=== PATIENT | male | born 1940 | race Caucasian/White ===

== ENCOUNTER 2020-06-01 08:58 | Inpatient (IN) ==
[2020-06-01] MEDS ORDERED: Famotidine 20 MG/2 ML VIAL IVP ONE (09:11)
[2020-06-01] MEDS ORDERED: Acetaminophen IV 1,000 MG/100 ML INFUS..BTL IVPB ONE (09:11)
[2020-06-01] MEDS ORDERED: *HR* HYDROmorphone 2 MG TABLET PO PRN (09:11)
[2020-06-01] MEDS ORDERED: *HR* Labetalol 20 MG/4 ML SYRINGE IVP PRN (09:11)
[2020-06-01] MEDS ORDERED: *HR* OxyCODONE Immed Rel 5 MG TABLET PO PRN (09:11)
[2020-06-01] MEDS ORDERED: cefOXitin 2,000 MG in Water for inj. (sterile) 20 ML IVP ONE (09:44)
[2020-06-01] MEDS ORDERED: *HR* Propofol 200 MG/20 ML VIAL IVP ONE (10:02)
[2020-06-01] MEDS ORDERED: *HR* Rocuronium Bromide 50 MG/5 ML VIAL ONE ×2 (10:02→13:12)
[2020-06-01] MEDS ORDERED: *HR* FentaNYL (PF) 100 MCG/2 ML VIAL ONE (10:02)
[2020-06-01] MEDS ORDERED: Lidocaine -MPF 2% 2 ML VIAL ONE (10:02)
[2020-06-01] MEDS ORDERED: Dexamethasone 4 MG/ML VIAL ONE (10:02)
[2020-06-01] MEDS ORDERED: Ondansetron 4 MG/2 ML VIAL ONE (10:02)
[2020-06-01] MEDS: Ringers Solution, Lactated 1,000 ML IVC SCH ×3 (10:13→16:56)
[2020-06-01] MEDS ORDERED: EPHEDrine 50 MG/ML VIAL ONE (11:53)
[2020-06-01] MEDS ORDERED: *HR* HYDROMORPHONE 2 MG/ML VIAL ONE (12:11)
[2020-06-01] MEDS ORDERED: Furosemide 40 MG/4 ML VIAL ONE (15:53)
[2020-06-01] MEDS: *HR* HYDROmorphone (PF) 1 MG/ML SYRINGE IVP PRN ×2 (16:15→16:26)
[2020-06-01] MEDS: *HR* Promethazine 25 MG/ML VIAL IVP PRN ×2 (16:24→16:38)
[2020-06-01] MEDS ORDERED: Naloxone 0.4 MG/ML INJ IVP PRN (18:15)
[2020-06-01] MEDS: 0.9 % Sodium Chloride 1,000 ML IVC SCH (18:43)
[2020-06-01] MEDS: Ketorolac 15 MG/ML VIAL IVP SCH (23:58)
[2020-06-01] MEDS: Acetaminophen IV 1,000 MG/100 ML INFUS..BTL IVPB SCH (23:59)
[2020-06-02] MEDS: Ketorolac 15 MG/ML VIAL IVP SCH ×4 (05:17→23:19)
[2020-06-02] MEDS: Acetaminophen IV 1,000 MG/100 ML INFUS..BTL IVPB SCH ×4 (05:17→23:20)
[2020-06-02] MEDS: 0.9 % Sodium Chloride 1,000 ML IVC SCH (05:18)
[2020-06-02] MEDS: *HR* Heparin 5,000 UNIT/ML VIAL SQ SCH ×2 (05:18→17:31)
[2020-06-02 06:07] LABS: Hematocrit 36.5 % (37.5-50.1); Hemoglobin 11.8 g/dL (12.9-16.9); Immature Granulocytes % 0.3 % (0-4); Lymphocytes # 0.4 K/mcL (0.6-4.6); Lymphocytes % 3.3 %; Mean Corpuscular HGB Conc 32.3 g/dL (31.6-35.5); Mean Corpuscular Hemoglobin 28.6 pg (28.0-33.3); Mean Corpuscular Volume 88.6 fL (83.0-100.0); Mean Platelet Volume 9.5 fL (9.4-12.4); Monocytes # 1.1 K/mcL (0.0-1.3); Monocytes % 9.2 %; Neutrophils # 10.5 K/mcL (1.6-8.9); Platelet Count 190 K/mcL (140-400); Red Blood Count 4.12 M/mcL (4.19-5.50); Red Cell Distribution Width 14.5 % (11.5-14.5); Segmented Neutrophils % 87.2 %
[2020-06-02 06:26] LABS: BUN/Creatinine Ratio 23 (6-26); Blood Urea Nitrogen 24 mg/dL (8-23); Calcium 8.5 mg/dL (8.6-10.3); Carbon Dioxide 24 mEq/L (23-29); Chloride 104 mEq/L (98-107); Glucose 133 mg/dL (70-105); Osmolality,Calculated 286 (280-300); Potassium 4.2 mEq/L (3.5-5.1); Sodium 135 mEq/L (136-145); eGFR For African Americans > 60 (> 60); eGFR For Non-African Americans > 60 (> 60)
[2020-06-02] MEDS: Finasteride 5 MG TABLET PO SCH (08:43)
[2020-06-02] MEDS: Ondansetron 4 MG/2 ML VIAL IVP PRN (23:17)
[2020-06-03 00:58] LABS: Basophils % 0.2 %; Eosinophils % 0.2 %; Hemoglobin 11.5 g/dL (12.9-16.9); Immature Granulocytes % 0.4 % (0-4); Lymphocytes # 0.3 K/mcL (0.6-4.6); Lymphocytes % 2.7 %; Mean Corpuscular HGB Conc 31.9 g/dL (31.6-35.5); Mean Corpuscular Hemoglobin 28.8 pg (28.0-33.3); Mean Corpuscular Volume 90.2 fL (83.0-100.0); Mean Platelet Volume 9.8 fL (9.4-12.4); Monocytes # 0.8 K/mcL (0.0-1.3); Monocytes % 6.9 %; Platelet Count 196 K/mcL (140-400); Red Blood Count 3.99 M/mcL (4.19-5.50); Red Cell Distribution Width 14.6 % (11.5-14.5); Segmented Neutrophils % 89.6 %; White Blood Count 12.2 K/mcL (4.3-11.1)
[2020-06-03 01:20] LABS: Alanine Aminotransferase 16 Units/L (7-52); Albumin 3.5 g/dL (3.5-5.7); Albumin/Globulin Ratio 1.6 (1.1-2.2); Alkaline Phosphatase 56 Units/L (34-104); Aspartate Amino Transferase 11 Units/L (13-39); BUN/Creatinine Ratio 22 (6-26); Bilirubin,Total 0.9 mg/dL (0.3-1.0); Blood Urea Nitrogen 23 mg/dL (8-23); Calcium 8.9 mg/dL (8.6-10.3); Carbon Dioxide 25 mEq/L (23-29); Chloride 102 mEq/L (98-107); Globulin 2.2 g/dL (2.4-3.5); Glucose 153 mg/dL (70-105); Osmolality,Calculated 287 (280-300); Potassium 3.8 mEq/L (3.5-5.1); Sodium 135 mEq/L (136-145); Total Protein 5.7 g/dL (6.4-8.9); eGFR For African Americans > 60 (> 60); eGFR For Non-African Americans > 60 (> 60)
[2020-06-03 01:21] LABS: Troponin I < 0.03 ng/mL (< 0.04)
[2020-06-03] MEDS ORDERED: Pantoprazole 40 MG VIAL IVP ONE (02:46)
[2020-06-03] MEDS: Ketorolac 15 MG/ML VIAL IVP SCH ×2 (06:33→12:22)
[2020-06-03] MEDS: *HR* Heparin 5,000 UNIT/ML VIAL SQ SCH ×2 (06:33→17:48)
[2020-06-03] MEDS: Acetaminophen IV 1,000 MG/100 ML INFUS..BTL IVPB SCH ×2 (06:34→12:23)
[2020-06-03] MEDS ORDERED: Simethicone 80 MG TAB.CHEW PO PRN (08:46)
[2020-06-03] MEDS: Finasteride 5 MG TABLET PO SCH (09:11)
[2020-06-03] MEDS: Ketorolac 15 MG/ML VIAL IVP PRN (21:33)
[2020-06-04] MEDS: Ketorolac 15 MG/ML VIAL IVP PRN (03:23)
[2020-06-04] MEDS: *HR* Heparin 5,000 UNIT/ML VIAL SQ SCH ×2 (04:53→18:17)
[2020-06-04] MEDS: Ondansetron 4 MG/2 ML VIAL IVP PRN (05:48)
[2020-06-04] MEDS ORDERED: Pantoprazole 40 MG VIAL IVP SCH (09:00)
[2020-06-04] MEDS ORDERED: Morphine Sulfate Oral CONC 10 MG/0.5 ML ORAL.SYG SL PRN (09:23)
[2020-06-04] MEDS: Finasteride 5 MG TABLET PO SCH (09:36)
[2020-06-04] MEDS ORDERED: *HR* Promethazine 25 MG/ML VIAL IVP ONE (10:35)
[2020-06-04 11:15] LABS: Basophils % 0.4 %; Eosinophils # 0.2 K/mcL (0.0-0.6); Eosinophils % 1.7 %; Hematocrit 39.4 % (37.5-50.1); Hemoglobin 12.9 g/dL (12.9-16.9); Lymphocytes # 0.5 K/mcL (0.6-4.6); Lymphocytes % 5.1 %; Mean Corpuscular HGB Conc 32.7 g/dL (31.6-35.5); Mean Corpuscular Hemoglobin 29.7 pg (28.0-33.3); Mean Corpuscular Volume 90.6 fL (83.0-100.0); Mean Platelet Volume 10.1 fL (9.4-12.4); Monocytes # 0.6 K/mcL (0.0-1.3); Monocytes % 6.5 %; Neutrophils # 8.2 K/mcL (1.6-8.9); Platelet Count 208 K/mcL (140-400); Red Blood Count 4.35 M/mcL (4.19-5.50); Red Cell Distribution Width 14.6 % (11.5-14.5); Segmented Neutrophils % 85.3 %; White Blood Count 9.6 K/mcL (4.3-11.1)
[2020-06-04 11:29] LABS: Alanine Aminotransferase 14 Units/L (7-52); Albumin 3.7 g/dL (3.5-5.7); Albumin/Globulin Ratio 1.5 (1.1-2.2); Alkaline Phosphatase 60 Units/L (34-104); Aspartate Amino Transferase 13 Units/L (13-39); BUN/Creatinine Ratio 31 (6-26); Bilirubin,Direct 0.2 mg/dL (0.0-0.2); Bilirubin,Indirect 0.6 mg/dL (0.0-1.0); Bilirubin,Total 0.8 mg/dL (0.3-1.0); Blood Urea Nitrogen 27 mg/dL (8-23); Calcium 9.4 mg/dL (8.6-10.3); Carbon Dioxide 22 mEq/L (23-29); Chloride 102 mEq/L (98-107); Globulin 2.5 g/dL (2.4-3.5); Glucose 123 mg/dL (70-105); Lipase 20 Units/L (11-82); Magnesium 1.9 mg/dL (1.6-2.6); Osmolality,Calculated 288 (280-300); Phosphorous 3.4 mg/dL (2.7-4.5); Potassium 3.9 mEq/L (3.5-5.1); Sodium 136 mEq/L (136-145); Total Protein 6.2 g/dL (6.4-8.9); Troponin I < 0.03 ng/mL (< 0.04); eGFR For African Americans > 60 (> 60); eGFR For Non-African Americans > 60 (> 60)
[2020-06-04] MEDS ORDERED: Acetaminophen IV 1,000 MG/100 ML INFUS..BTL IVPB ONE (16:50)
[2020-06-04] MEDS ORDERED: *HR* LORazepam 0.5 MG TABLET PO PRN (16:52)
[2020-06-05] MEDS: Morphine Sulfate 2 MG/ML SYRINGE IVP PRN ×2 (01:03→05:52)
[2020-06-05] MEDS: Ondansetron 4 MG/2 ML VIAL IVP PRN (05:50)
[2020-06-05] MEDS: *HR* Heparin 5,000 UNIT/ML VIAL SQ SCH ×2 (05:51→17:58)
[2020-06-05 06:53] LABS: Basophils # 0.1 K/mcL (0.0-0.2); Basophils % 0.4 %; Eosinophils # 0.1 K/mcL (0.0-0.6); Eosinophils % 0.9 %; Hematocrit 39.3 % (37.5-50.1); Hemoglobin 12.6 g/dL (12.9-16.9); Immature Granulocytes % 1.6 % (0-4); Lymphocytes # 0.5 K/mcL (0.6-4.6); Mean Corpuscular HGB Conc 32.1 g/dL (31.6-35.5); Mean Corpuscular Hemoglobin 29.1 pg (28.0-33.3); Mean Corpuscular Volume 90.8 fL (83.0-100.0); Mean Platelet Volume 9.9 fL (9.4-12.4); Monocytes # 0.9 K/mcL (0.0-1.3); Monocytes % 7.5 %; Neutrophils # 9.9 K/mcL (1.6-8.9); Platelet Count 231 K/mcL (140-400); Red Blood Count 4.33 M/mcL (4.19-5.50); Red Cell Distribution Width 14.3 % (11.5-14.5); Segmented Neutrophils % 85.6 %; White Blood Count 11.5 K/mcL (4.3-11.1)
[2020-06-05 07:12] LABS: BUN/Creatinine Ratio 38 (6-26); Blood Urea Nitrogen 34 mg/dL (8-23); Calcium 9.6 mg/dL (8.6-10.3); Carbon Dioxide 23 mEq/L (23-29); Chloride 100 mEq/L (98-107); Glucose 126 mg/dL (70-105); Osmolality,Calculated 287 (280-300); Potassium 4.2 mEq/L (3.5-5.1); Sodium 134 mEq/L (136-145); eGFR For African Americans > 60 (> 60); eGFR For Non-African Americans > 60 (> 60)
[2020-06-05] MEDS: Finasteride 5 MG TABLET PO SCH (09:15)
[2020-06-05] MEDS ORDERED: 0.9 % Sodium Chloride 1,000 ML IVC ONE (12:02)
[2020-06-05] MEDS: Ondansetron 4 MG/2 ML VIAL IVP SCH ×2 (12:48→17:58)
[2020-06-05] MEDS: 0.9 % Sodium Chloride 1,000 ML IVC SCH ×2 (13:45→23:19)
[2020-06-05] MEDS: Acetaminophen IV 1,000 MG/100 ML INFUS..BTL IVPB SCH ×2 (16:28→23:18)
[2020-06-05] MEDS: Piperacillin/Tazobactam 3.375 GM in 0.9 % Sodium Chloride Mini Bag 100 ML IVPB SCH (17:59)
[2020-06-06] MEDS: Ondansetron 4 MG/2 ML VIAL IVP SCH ×4 (00:25→17:28)
[2020-06-06] MEDS: Piperacillin/Tazobactam 3.375 GM in 0.9 % Sodium Chloride Mini Bag 100 ML IVPB SCH ×3 (00:31→17:28)
[2020-06-06] MEDS ORDERED: GI Cocktail 40 ML EACH PO ONE (03:43)
[2020-06-06] MEDS ORDERED: Prochlorperazine 10 MG/2 ML VIAL IVP PRN (03:44)
[2020-06-06] MEDS: *HR* Heparin 5,000 UNIT/ML VIAL SQ SCH ×2 (05:47→17:27)
[2020-06-06 05:52] LABS: Basophils # 0.1 K/mcL (0.0-0.2); Basophils % 0.6 %; Eosinophils # 0.1 K/mcL (0.0-0.6); Eosinophils % 1.4 %; Hematocrit 38.9 % (37.5-50.1); Hemoglobin 12.5 g/dL (12.9-16.9); Immature Granulocytes % 1.7 % (0-4); Lymphocytes # 0.4 K/mcL (0.6-4.6); Mean Corpuscular HGB Conc 32.1 g/dL (31.6-35.5); Mean Corpuscular Hemoglobin 28.8 pg (28.0-33.3); Mean Corpuscular Volume 89.6 fL (83.0-100.0); Mean Platelet Volume 9.6 fL (9.4-12.4); Monocytes # 0.8 K/mcL (0.0-1.3); Monocytes % 9.3 %; Neutrophils # 7.4 K/mcL (1.6-8.9); Platelet Count 229 K/mcL (140-400); Red Blood Count 4.34 M/mcL (4.19-5.50); Red Cell Distribution Width 14.4 % (11.5-14.5); White Blood Count 8.9 K/mcL (4.3-11.1)
[2020-06-06 06:03] LABS: BUN/Creatinine Ratio 36 (6-26); Blood Urea Nitrogen 33 mg/dL (8-23); Carbon Dioxide 22 mEq/L (23-29); Chloride 103 mEq/L (98-107); Glucose 130 mg/dL (70-105); Magnesium 2.1 mg/dL (1.6-2.6); Osmolality,Calculated 287 (280-300); Potassium 4.2 mEq/L (3.5-5.1); Sodium 134 mEq/L (136-145); eGFR For African Americans > 60 (> 60); eGFR For Non-African Americans > 60 (> 60)
[2020-06-06] MEDS: Acetaminophen IV 1,000 MG/100 ML INFUS..BTL IVPB SCH ×2 (08:43→15:47)
[2020-06-06] MEDS: Finasteride 5 MG TABLET PO SCH (08:44)
[2020-06-06] MEDS ORDERED: Scopolamine Patch 1.5 MG PATCH.TD72 TD ONE (09:34)
[2020-06-06] MEDS ORDERED: *HR* FentaNYL (PF) 100 MCG/2 ML VIAL IVP ONE (09:34)
[2020-06-06] MEDS ORDERED: Ondansetron 4 MG/2 ML VIAL IVP ONE (09:35)
[2020-06-06] MEDS ORDERED: Isovue-370 500 ML BOTTLE IVP ONE (09:36)
[2020-06-06] MEDS ORDERED: Lidocaine -MPF 1% 5 ML AMPUL INFILT ONE (11:16)
[2020-06-06 11:37] LABS: Triglycerides 196 mg/dL (< 150)
[2020-06-06] MEDS ORDERED: D10% in Water 500 ML IVC PRN (11:38)
[2020-06-06] MEDS ORDERED: Dextrose Gel 15 GM/37.5 ML TUBE PO PRN ×2 (11:55)
[2020-06-06] MEDS ORDERED: D5% in Water 1,000 ML IVC PRN (11:55)
[2020-06-06] MEDS ORDERED: *HR* Dextrose 50 % in Water (Vial) 50 ML VIAL IVP PRN (11:55)
[2020-06-06] MEDS: Insulin LISPRO 300 UNITS/3 ML VIAL SQ SCH ×3 (15:16→22:21)
[2020-06-06] MEDS ORDERED: Clinimix E 5%-15% SOLUTION 2,000 ML with MVI, adult with vitamin K 10 ML IVC SCH (17:00)
[2020-06-06] MEDS: 0.9 % Sodium Chloride 1,000 ML IVC SCH (17:29)
[2020-06-07] MEDS: Insulin LISPRO 300 UNITS/3 ML VIAL SQ SCH ×5 (00:19→16:13)
[2020-06-07] MEDS: Acetaminophen IV 1,000 MG/100 ML INFUS..BTL IVPB SCH ×3 (00:21→15:49)
[2020-06-07] MEDS: Ondansetron 4 MG/2 ML VIAL IVP SCH ×4 (00:22→17:27)
[2020-06-07] MEDS: Piperacillin/Tazobactam 3.375 GM in 0.9 % Sodium Chloride Mini Bag 100 ML IVPB SCH ×2 (00:22→09:04)
[2020-06-07] MEDS: 0.9 % Sodium Chloride 1,000 ML IVC SCH ×2 (04:08→04:40)
[2020-06-07 04:44] LABS: Basophils # 0.1 K/mcL (0.0-0.2); Basophils % 1.1 %; Eosinophils # 0.3 K/mcL (0.0-0.6); Eosinophils % 4.6 %; Hemoglobin 11.4 g/dL (12.9-16.9); Immature Granulocytes % 5.5 % (0-4); Lymphocytes # 0.3 K/mcL (0.6-4.6); Lymphocytes % 4.5 %; Mean Corpuscular HGB Conc 32.6 g/dL (31.6-35.5); Mean Corpuscular Hemoglobin 29.5 pg (28.0-33.3); Mean Corpuscular Volume 90.7 fL (83.0-100.0); Mean Platelet Volume 9.7 fL (9.4-12.4); Monocytes # 0.8 K/mcL (0.0-1.3); Monocytes % 11.5 %; Neutrophils # 5.2 K/mcL (1.6-8.9); Platelet Count 195 K/mcL (140-400); Red Blood Count 3.86 M/mcL (4.19-5.50); Red Cell Distribution Width 14.5 % (11.5-14.5); Segmented Neutrophils % 72.8 %; White Blood Count 7.1 K/mcL (4.3-11.1)
[2020-06-07 05:05] LABS: BUN/Creatinine Ratio 29 (6-26); Blood Urea Nitrogen 23 mg/dL (8-23); Calcium 8.2 mg/dL (8.6-10.3); Carbon Dioxide 23 mEq/L (23-29); Chloride 104 mEq/L (98-107); Glucose 115 mg/dL (70-105); Magnesium 2.1 mg/dL (1.6-2.6); Osmolality,Calculated 283 (280-300); Phosphorous 2.1 mg/dL (2.7-4.5); Potassium 3.7 mEq/L (3.5-5.1); Sodium 134 mEq/L (136-145); eGFR For African Americans > 60 (> 60); eGFR For Non-African Americans > 60 (> 60)
[2020-06-07 05:25] LABS: Platelet Estimate Normal (Normal)
[2020-06-07] MEDS: *HR* Heparin 5,000 UNIT/ML VIAL SQ SCH ×2 (05:35→17:28)
[2020-06-07] MEDS: *HR* Promethazine 25 MG/ML VIAL IVP PRN (09:06)
[2020-06-07] MEDS: Finasteride 5 MG TABLET PO SCH (09:07)
[2020-06-07] MEDS ORDERED: Clinimix E 5%-15% SOLUTION 2,000 ML with MVI, adult with vitamin K 10 ML IVC SCH (17:00)
[2020-06-08] MEDS: Ondansetron 4 MG/2 ML VIAL IVP SCH ×4 (00:08→17:22)
[2020-06-08] MEDS: Insulin LISPRO 300 UNITS/3 ML VIAL SQ SCH ×7 (01:20→22:07)
[2020-06-08] MEDS: *HR* Heparin 5,000 UNIT/ML VIAL SQ SCH ×2 (05:41→17:22)
[2020-06-08 05:55] LABS: Eosinophils # 0.2 K/mcL (0.0-0.6); Hematocrit 34.3 % (37.5-50.1); Hemoglobin 11.2 g/dL (12.9-16.9); Mean Corpuscular HGB Conc 32.7 g/dL (31.6-35.5); Mean Corpuscular Hemoglobin 29.6 pg (28.0-33.3); Mean Corpuscular Volume 90.5 fL (83.0-100.0); Mean Platelet Volume 9.4 fL (9.4-12.4); Platelet Count 199 K/mcL (140-400); Red Blood Count 3.79 M/mcL (4.19-5.50); Red Cell Distribution Width 14.4 % (11.5-14.5); White Blood Count 8.4 K/mcL (4.3-11.1)
[2020-06-08 05:56] LABS: VBG Ionized Calcium 1.16 mmol/L (1.15-1.35)
[2020-06-08 06:15] LABS: BUN/Creatinine Ratio 26 (6-26); Blood Urea Nitrogen 19 mg/dL (8-23); Calcium 8.5 mg/dL (8.6-10.3); Carbon Dioxide 25 mEq/L (23-29); Chloride 105 mEq/L (98-107); Glucose 146 mg/dL (70-105); Magnesium 2.2 mg/dL (1.6-2.6); Osmolality,Calculated 285 (280-300); Phosphorous 2.6 mg/dL (2.7-4.5); Potassium 3.6 mEq/L (3.5-5.1); Sodium 135 mEq/L (136-145); eGFR For African Americans > 60 (> 60); eGFR For Non-African Americans > 60 (> 60)
[2020-06-08 06:29] LABS: Lymphocytes # 0.3 K/mcL (0.6-4.6); Neutrophils # 7.9 K/mcL (1.6-8.9); Platelet Estimate Normal (Normal)
[2020-06-08] MEDS: Finasteride 5 MG TABLET PO SCH (08:20)
[2020-06-08] MEDS: Acetaminophen 325 MG TABLET PO PRN (13:45)
[2020-06-08] MEDS ORDERED: Clinimix E 5%-15% SOLUTION 2,000 ML with MVI, adult with vitamin K 10 ML IVC SCH (17:00)
[2020-06-09] MEDS: Ondansetron 4 MG/2 ML VIAL IVP SCH ×4 (00:46→17:34)
[2020-06-09] MEDS: Insulin LISPRO 300 UNITS/3 ML VIAL SQ SCH ×6 (00:49→22:30)
[2020-06-09] MEDS: Acetaminophen 325 MG TABLET PO PRN ×2 (04:23→16:59)
[2020-06-09] MEDS: *HR* Heparin 5,000 UNIT/ML VIAL SQ SCH ×2 (06:14→17:33)
[2020-06-09 06:29] LABS: Hematocrit 35.7 % (37.5-50.1); Hemoglobin 11.4 g/dL (12.9-16.9); Mean Corpuscular HGB Conc 31.9 g/dL (31.6-35.5); Mean Corpuscular Hemoglobin 28.5 pg (28.0-33.3); Mean Corpuscular Volume 89.3 fL (83.0-100.0); Mean Platelet Volume 9.7 fL (9.4-12.4); Platelet Count 225 K/mcL (140-400); Red Cell Distribution Width 14.5 % (11.5-14.5); White Blood Count 9.7 K/mcL (4.3-11.1)
[2020-06-09 07:19] LABS: BUN/Creatinine Ratio 26 (6-26); Blood Urea Nitrogen 18 mg/dL (8-23); Calcium 8.8 mg/dL (8.6-10.3); Carbon Dioxide 25 mEq/L (23-29); Chloride 103 mEq/L (98-107); Glucose 113 mg/dL (70-105); Magnesium 2.3 mg/dL (1.6-2.6); Osmolality,Calculated 283 (280-300); Potassium 3.7 mEq/L (3.5-5.1); Sodium 135 mEq/L (136-145); eGFR For African Americans > 60 (> 60); eGFR For Non-African Americans > 60 (> 60)
[2020-06-09 07:52] LABS: Lymphocytes # 0.8 K/mcL (0.6-4.6); Monocytes # 0.4 K/mcL (0.0-1.3); Neutrophils # 8.2 K/mcL (1.6-8.9)
[2020-06-09 07:53] LABS: Platelet Estimate Normal (Normal)
[2020-06-09] MEDS: Finasteride 5 MG TABLET PO SCH (09:04)
[2020-06-09] MEDS ORDERED: Clinimix E 5%-15% SOLUTION 2,000 ML with MVI, adult with vitamin K 10 ML IVC SCH (17:00)
[2020-06-09] MEDS: *HR* Promethazine 25 MG/ML VIAL IVP PRN (21:16)
[2020-06-10] MEDS: Ondansetron 4 MG/2 ML VIAL IVP SCH ×4 (00:21→17:20)
[2020-06-10] MEDS: Insulin LISPRO 300 UNITS/3 ML VIAL SQ SCH ×6 (00:23→20:56)
[2020-06-10] MEDS: *HR* Heparin 5,000 UNIT/ML VIAL SQ SCH ×2 (05:21→17:20)
[2020-06-10 05:58] LABS: BUN/Creatinine Ratio 29 (6-26); Blood Urea Nitrogen 21 mg/dL (8-23); Calcium 8.9 mg/dL (8.6-10.3); Carbon Dioxide 27 mEq/L (23-29); Chloride 100 mEq/L (98-107); Glucose 114 mg/dL (70-105); Magnesium 2.3 mg/dL (1.6-2.6); Osmolality,Calculated 280 (280-300); Phosphorous 3.1 mg/dL (2.7-4.5); Potassium 3.8 mEq/L (3.5-5.1); Sodium 133 mEq/L (136-145); eGFR For African Americans > 60 (> 60); eGFR For Non-African Americans > 60 (> 60)
[2020-06-10] MEDS: Finasteride 5 MG TABLET PO SCH (08:56)
[2020-06-10] MEDS: Acetaminophen 325 MG TABLET PO PRN (11:08)
[2020-06-10] MEDS: *HR* Promethazine 25 MG/ML VIAL IVP PRN (11:08)
[2020-06-10] MEDS ORDERED: Ibuprofen 800 MG TABLET PO PRN (11:18)
[2020-06-10] MEDS ORDERED: Mag Hydrox/Al Hydrox/Simeth 30 ML UDC PO ONE (18:48)
[2020-06-11] MEDS: Ondansetron 4 MG/2 ML VIAL IVP SCH ×4 (00:02→18:09)
[2020-06-11] MEDS: Insulin LISPRO 300 UNITS/3 ML VIAL SQ SCH ×4 (00:05→11:19)
[2020-06-11] MEDS: *HR* Heparin 5,000 UNIT/ML VIAL SQ SCH ×2 (06:34→18:10)
[2020-06-11] MEDS: *HR* OxyCODONE/APAP 5/325 TABLET PO PRN ×2 (06:39→12:46)
[2020-06-11] MEDS: Metoclopramide 20 MG in 0.9 % Sodium Chloride 50 ML IVPB SCH ×2 (08:26→15:30)
[2020-06-11] MEDS: Scopolamine Patch 1.5 MG PATCH.TD72 TD SCH (08:27)
[2020-06-11] MEDS: FLUoxetine 20 MG CAPSULE PO SCH (08:27)
[2020-06-11] MEDS: Finasteride 5 MG TABLET PO SCH (08:28)
[2020-06-11] MEDS ORDERED: GI Cocktail 40 ML EACH PO STA (09:04)
[2020-06-11] MEDS: Sucralfate 1 GM TABLET PO SCH ×3 (11:48→21:30)
[2020-06-11] MEDS ORDERED: 0.9 % Sodium Chloride 1,000 ML IVC SCH (12:45)
[2020-06-11] MEDS ORDERED: 0.9 % Sodium Chloride 1,000 ML ONE (12:55)
[2020-06-11 13:00] LABS: Estimated Average Glucose 108 mg/dl
[2020-06-12] MEDS: Ondansetron 4 MG/2 ML VIAL IVP SCH ×4 (02:15→17:09)
[2020-06-12] MEDS: *HR* OxyCODONE/APAP 5/325 TABLET PO PRN ×2 (03:27→11:12)
[2020-06-12] MEDS: *HR* Heparin 5,000 UNIT/ML VIAL SQ SCH ×2 (05:42→17:08)
[2020-06-12 06:03] LABS: Basophils # 0.1 K/mcL (0.0-0.2); Basophils % 0.5 %; Eosinophils # 0.1 K/mcL (0.0-0.6); Eosinophils % 1.2 %; Hematocrit 38.1 % (37.5-50.1); Hemoglobin 12.5 g/dL (12.9-16.9); Immature Granulocytes % 1.8 % (0-4); Lymphocytes # 0.5 K/mcL (0.6-4.6); Lymphocytes % 3.9 %; Mean Corpuscular HGB Conc 32.8 g/dL (31.6-35.5); Mean Corpuscular Hemoglobin 29.8 pg (28.0-33.3); Mean Corpuscular Volume 90.7 fL (83.0-100.0); Mean Platelet Volume 9.6 fL (9.4-12.4); Monocytes % 8.1 %; Neutrophils # 10.3 K/mcL (1.6-8.9); Platelet Count 286 K/mcL (140-400); Red Cell Distribution Width 14.5 % (11.5-14.5); Segmented Neutrophils % 84.5 %; White Blood Count 12.1 K/mcL (4.3-11.1)
[2020-06-12 06:22] LABS: BUN/Creatinine Ratio 40 (6-26); Blood Urea Nitrogen 36 mg/dL (8-23); Carbon Dioxide 26 mEq/L (23-29); Chloride 98 mEq/L (98-107); Glucose 121 mg/dL (70-105); Osmolality,Calculated 284 (280-300); Potassium 4.1 mEq/L (3.5-5.1); Sodium 132 mEq/L (136-145); eGFR For African Americans > 60 (> 60); eGFR For Non-African Americans > 60 (> 60)
[2020-06-12] MEDS: Metoclopramide 20 MG in 0.9 % Sodium Chloride 50 ML IVPB SCH ×2 (07:34)
[2020-06-12] MEDS: Sucralfate 1 GM TABLET PO SCH ×4 (07:35→20:58)
[2020-06-12] MEDS: Finasteride 5 MG TABLET PO SCH (08:25)
[2020-06-12] MEDS: FLUoxetine 20 MG CAPSULE PO SCH (08:25)
[2020-06-12] MEDS ORDERED: Fluconazole 200 MG/100 ML 200 MG/100 ML BAG IVPB STA (18:23)
[2020-06-13] MEDS: Ondansetron 4 MG/2 ML VIAL IVP SCH ×4 (00:37→17:41)
[2020-06-13] MEDS: *HR* Heparin 5,000 UNIT/ML VIAL SQ SCH ×2 (02:47→17:40)
[2020-06-13] MEDS: Sucralfate 1 GM TABLET PO SCH (07:50)
[2020-06-13] MEDS: FLUoxetine 20 MG CAPSULE PO SCH (07:50)
[2020-06-13] MEDS: Finasteride 5 MG TABLET PO SCH (07:51)
[2020-06-13] MEDS ORDERED: Lidocaine -MPF 2% 2 ML VIAL ONE (08:05)
[2020-06-13 09:11] LABS: Basophils # 0.1 K/mcL (0.0-0.2); Basophils % 0.6 %; Eosinophils # 0.1 K/mcL (0.0-0.6); Eosinophils % 1.3 %; Hematocrit 38.3 % (37.5-50.1); Hemoglobin 12.5 g/dL (12.9-16.9); Immature Granulocytes % 1.9 % (0-4); Lymphocytes # 0.4 K/mcL (0.6-4.6); Lymphocytes % 3.4 %; Mean Corpuscular HGB Conc 32.6 g/dL (31.6-35.5); Mean Corpuscular Hemoglobin 28.9 pg (28.0-33.3); Mean Corpuscular Volume 88.5 fL (83.0-100.0); Mean Platelet Volume 9.7 fL (9.4-12.4); Monocytes # 0.8 K/mcL (0.0-1.3); Monocytes % 6.9 %; Neutrophils # 9.3 K/mcL (1.6-8.9); Platelet Count 311 K/mcL (140-400); Red Blood Count 4.33 M/mcL (4.19-5.50); Red Cell Distribution Width 14.4 % (11.5-14.5); Segmented Neutrophils % 85.9 %; White Blood Count 10.9 K/mcL (4.3-11.1)
[2020-06-13 09:16] LABS: Prothrombin Time 11.7 Seconds (9.4-12.1)
[2020-06-13 09:31] LABS: BUN/Creatinine Ratio 37 (6-26); Blood Urea Nitrogen 34 mg/dL (8-23); Calcium 9.3 mg/dL (8.6-10.3); Carbon Dioxide 25 mEq/L (23-29); Chloride 100 mEq/L (98-107); Glucose 111 mg/dL (70-105); Magnesium 2.5 mg/dL (1.6-2.6); Osmolality,Calculated 286 (280-300); Phosphorous 3.3 mg/dL (2.7-4.5); Sodium 134 mEq/L (136-145); eGFR For African Americans > 60 (> 60); eGFR For Non-African Americans > 60 (> 60)
[2020-06-13] MEDS: Amoxicillin 500 MG CAPSULE PO SCH ×2 (10:59→21:43)
[2020-06-13] MEDS: levoFLOXacin 750 MG TABLET PO SCH (11:02)
[2020-06-13] MEDS: Nystatin SUSP 5 ML UD.LIQ PO SCH ×3 (13:08→21:45)
[2020-06-13] MEDS: *HR* OxyCODONE/APAP 5/325 TABLET PO PRN (22:07)
[2020-06-14] MEDS: Ondansetron 4 MG/2 ML VIAL IVP SCH ×4 (00:02→17:14)
[2020-06-14] MEDS: *HR* Heparin 5,000 UNIT/ML VIAL SQ SCH ×2 (06:12→17:15)
[2020-06-14] MEDS: Scopolamine Patch 1.5 MG PATCH.TD72 TD SCH (06:13)
[2020-06-14 07:12] LABS: Basophils # 0.1 K/mcL (0.0-0.2); Basophils % 0.9 %; Eosinophils # 0.2 K/mcL (0.0-0.6); Eosinophils % 2.2 %; Hematocrit 36.5 % (37.5-50.1); Hemoglobin 11.8 g/dL (12.9-16.9); Immature Granulocytes % 2.9 % (0-4); Lymphocytes # 0.4 K/mcL (0.6-4.6); Lymphocytes % 4.9 %; Mean Corpuscular HGB Conc 32.3 g/dL (31.6-35.5); Mean Corpuscular Hemoglobin 28.7 pg (28.0-33.3); Mean Corpuscular Volume 88.8 fL (83.0-100.0); Mean Platelet Volume 9.4 fL (9.4-12.4); Monocytes # 0.8 K/mcL (0.0-1.3); Monocytes % 8.8 %; Neutrophils # 7.2 K/mcL (1.6-8.9); Nucleated Red Blood Cells 0.3 /100 WBC (0); Platelet Count 292 K/mcL (140-400); Red Blood Count 4.11 M/mcL (4.19-5.50); Red Cell Distribution Width 14.4 % (11.5-14.5); Segmented Neutrophils % 80.3 %; White Blood Count 8.9 K/mcL (4.3-11.1)
[2020-06-14 07:31] LABS: BUN/Creatinine Ratio 29 (6-26); Blood Urea Nitrogen 26 mg/dL (8-23); Carbon Dioxide 23 mEq/L (23-29); Chloride 100 mEq/L (98-107); Glucose 107 mg/dL (70-105); Magnesium 2.1 mg/dL (1.6-2.6); Osmolality,Calculated 279 (280-300); Phosphorous 3.3 mg/dL (2.7-4.5); Potassium 3.5 mEq/L (3.5-5.1); Sodium 132 mEq/L (136-145); eGFR For African Americans > 60 (> 60); eGFR For Non-African Americans > 60 (> 60)
[2020-06-14] MEDS: Nystatin SUSP 5 ML UD.LIQ PO SCH ×3 (08:09→17:15)
[2020-06-14] MEDS: levoFLOXacin 750 MG TABLET PO SCH (08:10)
[2020-06-14] MEDS: Amoxicillin 500 MG CAPSULE PO SCH (08:10)
[2020-06-14] MEDS: Finasteride 5 MG TABLET PO SCH (08:10)
[2020-06-14] MEDS: FLUoxetine 20 MG CAPSULE PO SCH (08:10)
[2020-06-14 10:18] VITALS: BP 103/59
== END 2020-06-14 18:40 | disposition other institution (70) | DRG 329 ==
LOC: SAMDAY 08:58 → 3ANU 17:45 → SUATTDRO 17:45
PROVIDERS: ADMIT Surgery; ATTEND Surgery
PROC: ENDOEBX (2020-06-13 17:10)

== ENCOUNTER 2020-08-10 11:54 | Inpatient (IN) ==
[2020-08-10] MEDS ORDERED: Ringers Solution, Lactated 1,000 ML IVC SCH (12:30)
[2020-08-10] MEDS ORDERED: *HR* Propofol 200 MG/20 ML VIAL IVP ONE (13:14)
[2020-08-10] MEDS ORDERED: *HR* Rocuronium Bromide 50 MG/5 ML VIAL ONE (13:14)
[2020-08-10] MEDS ORDERED: Lidocaine -MPF 2% 2 ML VIAL ONE (13:14)
[2020-08-10] MEDS ORDERED: Lidocaine -MPF 4% 5 ML AMPUL ONE (13:14)
[2020-08-10] MEDS ORDERED: *HR* FentaNYL (PF) 100 MCG/2 ML VIAL ONE ×2 (13:14→15:10)
[2020-08-10] MEDS ORDERED: Ondansetron 4 MG/2 ML VIAL ONE (13:14)
[2020-08-10] MEDS ORDERED: Ondansetron 4 MG/2 ML VIAL IVP PRN (13:51)
[2020-08-10] MEDS ORDERED: *HR* OxyCODONE Immed Rel 5 MG TABLET PO PRN (13:51)
[2020-08-10] MEDS ORDERED: Famotidine 20 MG/2 ML VIAL IVP ONE (13:51)
[2020-08-10] MEDS ORDERED: Acetaminophen IV 1,000 MG/100 ML INFUS..BTL IVPB ONE (13:51)
[2020-08-10] MEDS ORDERED: Promethazine 6.25 MG in 0.9 % Sodium Chloride 50 ML IVPB PRN (13:51)
[2020-08-10] MEDS ORDERED: cefOXitin 2,000 MG in Water for inj. (sterile) 20 ML IVP ONE (15:04)
[2020-08-10] MEDS ORDERED: *HR* PHENYLEPHRINE 1,000 MCG/10 ML SYRINGE IVP ONE (15:46)
[2020-08-10] MEDS: *HR* HYDROmorphone PF 0.5 MG/0.5 ML SYRINGE IVP PRN ×2 (17:20→17:31)
[2020-08-10] MEDS: 0.9 % Sodium Chloride w KCl 20 MEQ/1,000 ML MLS IVC SCH (20:00)
[2020-08-10] MEDS: Ketorolac 15 MG/ML VIAL IVP PRN (20:02)
[2020-08-11] MEDS: Ketorolac 15 MG/ML VIAL IVP PRN ×2 (08:52→22:46)
[2020-08-11] MEDS: 0.9 % Sodium Chloride w KCl 20 MEQ/1,000 ML MLS IVC SCH (15:10)
[2020-08-12] MEDS: 0.9 % Sodium Chloride w KCl 20 MEQ/1,000 ML MLS IVC SCH ×2 (04:47→20:53)
[2020-08-12] MEDS: Ketorolac 15 MG/ML VIAL IVP PRN (06:40)
[2020-08-12 07:51] LABS: Basophils % 0.4 %; Eosinophils # 0.4 K/mcL (0.0-0.6); Eosinophils % 4.1 %; Hemoglobin 12.7 g/dL (12.9-16.9); Immature Granulocytes % 0.8 % (0-4); Lymphocytes # 0.3 K/mcL (0.6-4.6); Lymphocytes % 3.4 %; Mean Corpuscular HGB Conc 32.6 g/dL (31.6-35.5); Mean Corpuscular Hemoglobin 28.9 pg (28.0-33.3); Mean Corpuscular Volume 88.8 fL (83.0-100.0); Mean Platelet Volume 9.5 fL (9.4-12.4); Monocytes # 0.8 K/mcL (0.0-1.3); Monocytes % 8.2 %; Neutrophils # 7.7 K/mcL (1.6-8.9); Platelet Count 180 K/mcL (140-400); Red Blood Count 4.39 M/mcL (4.19-5.50); Red Cell Distribution Width 15.2 % (11.5-14.5); Segmented Neutrophils % 83.1 %; White Blood Count 9.3 K/mcL (4.3-11.1)
[2020-08-12 08:11] LABS: BUN/Creatinine Ratio 29 (6-26); Blood Urea Nitrogen 27 mg/dL (8-23); Calcium 8.7 mg/dL (8.6-10.3); Carbon Dioxide 20 mEq/L (23-29); Chloride 106 mEq/L (98-107); Glucose 132 mg/dL (70-105); Magnesium 1.8 mg/dL (1.6-2.6); Osmolality,Calculated 285 (280-300); Phosphorous 1.9 mg/dL (2.7-4.5); Potassium 3.9 mEq/L (3.5-5.1); Sodium 134 mEq/L (136-145); eGFR For African Americans > 60 (> 60); eGFR For Non-African Americans > 60 (> 60)
[2020-08-12] MEDS ORDERED: Scopolamine Patch 1.5 MG PATCH.TD72 TD ONE (08:53)
[2020-08-12] MEDS ORDERED: Simethicone 80 MG TAB.CHEW PO PRN (08:53)
[2020-08-12] MEDS ORDERED: Ondansetron ODT 4 MG TAB.RAPDIS SL PRN (08:55)
[2020-08-12] MEDS ORDERED: Mirtazapine 15 MG TABLET PO SCH ×2 (09:00→21:00)
[2020-08-12] MEDS: Acetaminophen IV 1,000 MG/100 ML INFUS..BTL IVPB SCH ×4 (09:55→23:30)
[2020-08-12] MEDS: Metoclopramide 10 MG/2 ML VIAL IVP SCH ×4 (10:07→23:30)
[2020-08-12] MEDS: Finasteride 5 MG TABLET PO SCH (10:07)
[2020-08-12] MEDS: *HR* Heparin 5,000 UNIT/ML VIAL SQ SCH (17:07)
[2020-08-13] MEDS: Acetaminophen IV 1,000 MG/100 ML INFUS..BTL IVPB SCH ×2 (00:04→04:55)
[2020-08-13] MEDS: 0.9 % Sodium Chloride w KCl 20 MEQ/1,000 ML MLS IVC SCH (04:54)
[2020-08-13] MEDS: *HR* Heparin 5,000 UNIT/ML VIAL SQ SCH (04:54)
[2020-08-13] MEDS: Metoclopramide 10 MG/2 ML VIAL IVP SCH (05:03)
[2020-08-13] MEDS: Finasteride 5 MG TABLET PO SCH (08:25)
[2020-08-13 11:12] VITALS: BP 114/74
== END 2020-08-13 13:30 | disposition home or self-care (01) | DRG 330 ==
LOC: SAMDAY 11:54 → 3BNU 11:55
PROVIDERS: ADMIT Surgery; ATTEND Surgery

== ENCOUNTER 2021-07-27 16:20 | Observation (INO) ==
[2021-07-27 17:41] LABS: Basophils % 0.4 %; Eosinophils % 0.4 %; Hematocrit 43.1 % (37.5-50.1); Hemoglobin 14.6 g/dL (12.9-16.9); Immature Granulocytes % 1.2 % (0-4); Lymphocytes # 0.6 K/mcL (0.6-4.6); Lymphocytes % 7.7 %; Mean Corpuscular HGB Conc 33.9 g/dL (31.6-35.5); Mean Corpuscular Volume 82.7 fL (83.0-100.0); Mean Platelet Volume 10.3 fL (9.4-12.4); Monocytes # 0.6 K/mcL (0.0-1.3); Platelet Count 201 K/mcL (140-400); Red Blood Count 5.21 M/mcL (4.19-5.50); Red Cell Distribution Width 14.5 % (11.5-14.5); Segmented Neutrophils % 82.3 %; White Blood Count 7.3 K/mcL (4.3-11.1)
[2021-07-27 18:02] LABS: Alanine Aminotransferase 43 Units/L (7-52); Albumin 4.1 g/dL (3.5-5.7); Albumin/Globulin Ratio 1.4 (1.1-2.2); Alkaline Phosphatase 106 Units/L (34-104); Aspartate Amino Transferase 31 Units/L (13-39); BUN/Creatinine Ratio 22 (6-26); Bilirubin,Total 1.5 mg/dL (0.3-1.0); Blood Urea Nitrogen 25 mg/dL (8-23); Calcium 9.5 mg/dL (8.6-10.3); Carbon Dioxide 25 mEq/L (23-29); Chloride 99 mEq/L (98-107); Globulin 2.9 g/dL (2.4-3.5); Glucose 107 mg/dL (70-105); Osmolality,Calculated 287 (280-300); Potassium 3.7 mEq/L (3.5-5.1); Sodium 136 mEq/L (136-145); Troponin I < 0.03 ng/mL (< 0.04); eGFR For African Americans > 60 (> 60); eGFR For Non-African Americans > 60 (> 60)
[2021-07-27] MEDS ORDERED: 0.9 % Sodium Chloride 1,000 ML IV ONE (18:07)
[2021-07-27] MEDS ORDERED: Isovue-370 500 ML BOTTLE IVP ONE (18:30)
[2021-07-27 20:31] LABS: Bacteria,Urine Few per hpf (None-Few); Bilirubin,Urine Small (Negative); Blood,Urine Negative (Negative); Clarity,Urine Clear (Clear); Color,Urine Yellow (Yellow); Glucose,Urine (UA) Normal (Normal); Ketones,Urine 20 mg/dL (Negative); Leukocyte Esterase,Urine Negative (Negative); Mucus,Urine Moderate per lpf (None-Few); Nitrite,Urine Negative (Negative); Protein,Urine 100 mg/dL (Neg-Trace); RBC,Urine 0-3 per hpf (0-3); Specific Gravity,Urine > 1.030 (1.010-1.025); Squamous Epithelial Cell,Urine Few per hpf (None-Few)
[2021-07-27] MEDS ORDERED: Naloxone 0.4 MG/ML INJ IVP PRN (21:11)
[2021-07-27] MEDS ORDERED: Melatonin 3 MG TABLET PO PRN (21:11)
[2021-07-27] MEDS ORDERED: Perflutren Lipid Microsphere 1.3 ML in 0.9 % Sodium Chloride 8.7 ML IVP PRN (21:13)
[2021-07-27] MEDS ORDERED: Ipratropium 1 PUFF INHALER IH PRN (22:49)
[2021-07-28] MEDS ORDERED: 0.9 % Sodium Chloride 1,000 ML IVC SCH (00:30)
[2021-07-28] MEDS: *HR* Heparin 5,000 UNIT/ML VIAL SQ SCH ×2 (05:09→17:46)
[2021-07-28 06:35] LABS: BUN/Creatinine Ratio 26 (6-26); Blood Urea Nitrogen 25 mg/dL (8-23); Calcium 8.8 mg/dL (8.6-10.3); Carbon Dioxide 23 mEq/L (23-29); Chloride 103 mEq/L (98-107); Glucose 113 mg/dL (70-105); Magnesium 2.1 mg/dL (1.6-2.6); Osmolality,Calculated 289 (280-300); Phosphorous 3.2 mg/dL (2.7-4.5); Potassium 3.4 mEq/L (3.5-5.1); Sodium 137 mEq/L (136-145); eGFR For African Americans > 60 (> 60); eGFR For Non-African Americans > 60 (> 60)
[2021-07-28] MEDS: Finasteride 5 MG TABLET PO SCH (08:38)
[2021-07-28] MEDS ORDERED: Acetaminophen 325 MG TABLET PO PRN (09:23)
[2021-07-28 10:37] LABS: Hematocrit 40.6 % (37.5-50.1); Hemoglobin 13.7 g/dL (12.9-16.9); Mean Corpuscular HGB Conc 33.7 g/dL (31.6-35.5); Mean Corpuscular Hemoglobin 28.2 pg (28.0-33.3); Mean Corpuscular Volume 83.5 fL (83.0-100.0); Mean Platelet Volume 10.7 fL (9.4-12.4); Platelet Count 194 K/mcL (140-400); Red Blood Count 4.86 M/mcL (4.19-5.50); Red Cell Distribution Width 14.3 % (11.5-14.5); White Blood Count 5.8 K/mcL (4.3-11.1)
[2021-07-28 20:04] LABS: Adenovirus F 40/41 PCR Not detected (Not detect); Astrovirus PCR Not detected (Not detect); C.difficile Toxin A/B Gene PCR Not detected (Not detect); Campylobacter by PCR Not detected (Not detect); Cryptosporidium by PCR Not detected (Not detect); Cyclospora cayetanensis PCR Not detected (Not detect); E. coli O157 by PCR Not detected (Not detect); Entamoeba histolytica PCR Not detected (Not detect); Enteroaggregative E.coli(EAEC) Not detected (Not detect); Enteropathogenic E.coli(EPEC) Not detected (Not detect); Enterotoxigenic E.coli (ETEC) Not detected (Not detect); Giardia lamblia PCR Not detected (Not detect); Norovirus GI/GII PCR Not detected (Not detect); Plesiomonas shigelloides PCR Not detected (Not detect); Rotavirus A PCR Not detected (Not detect); Salmonella PCR Not detected (Not detect); Sapovirus PCR Not detected (Not detect); Shig/EnteroinvasiveE coli EIEC Not detected (Not detect); Shigalike tox-prod E coli STEC Not detected (Not detect); Vibrio PCR Not detected (Not detect); Vibrio cholerae PCR Not detected (Not detect); Yersinia enterocolitica PCR Not detected (Not detect)
[2021-07-29] MEDS: *HR* Heparin 5,000 UNIT/ML VIAL SQ SCH (06:39)
[2021-07-29] MEDS ORDERED: 0.9 % Sodium Chloride 1,000 ML IVC SCH (07:00)
[2021-07-29 10:25] VITALS: TEMP 97.8
[2021-07-29] MEDS: Finasteride 5 MG TABLET PO SCH (10:36)
[2021-07-29 16:44] VITALS: BP 123/73; PULSE 63; O2SAT 97
== END 2021-07-29 17:47 | disposition home or self-care (01) ==
LOC: EMEROOARM 16:20 → 3ANU 16:20 → SUATTDRO 21:23 → 3ANU 22:15
PROVIDERS: ADMIT Internal Medicine; ATTEND Student in an Organized Health Care Education/Training Program

== ENCOUNTER 2021-09-04 13:47 | Inpatient (IN) ==
[2021-09-04] MEDS ORDERED: Lidocaine -MPF 2% 2 ML VIAL ONE (14:20)
[2021-09-04] MEDS ORDERED: cefOXitin 2,000 MG in Water for inj. (sterile) 20 ML IVP ONE (14:21)
[2021-09-04] MEDS ORDERED: Ringers Solution, Lactated 1,000 ML IVC SCH (14:30)
[2021-09-04] MEDS ORDERED: *HR* Rocuronium Bromide 50 MG/5 ML VIAL ONE ×2 (16:11→18:09)
[2021-09-04] MEDS ORDERED: *HR* FentaNYL (PF) 100 MCG/2 ML VIAL ONE ×2 (16:11→18:23)
[2021-09-04] MEDS ORDERED: Ondansetron 4 MG/2 ML VIAL ONE (16:11)
[2021-09-04] MEDS ORDERED: Lidocaine -MPF 2% 5 ML VIAL ONE (16:11)
[2021-09-04] MEDS ORDERED: *HR* Propofol 200 MG/20 ML VIAL IVP ONE (16:12)
[2021-09-04 20:05] LABS: INR 1.2
[2021-09-04 20:12] LABS: Hematocrit 37.2 % (37.5-50.1); Hemoglobin 12.5 g/dL (12.9-16.9); Mean Corpuscular HGB Conc 33.6 g/dL (31.6-35.5); Mean Corpuscular Volume 86.3 fL (83.0-100.0); Mean Platelet Volume 9.8 fL (9.4-12.4); Platelet Count 212 K/mcL (140-400); Red Blood Count 4.31 M/mcL (4.19-5.50); Red Cell Distribution Width 15.1 % (11.5-14.5); White Blood Count 18.6 K/mcL (4.3-11.1)
[2021-09-04] MEDS ORDERED: *HR* HYDROMORPHONE 2 MG/ML VIAL ONE (20:22)
[2021-09-04] MEDS: *HR* FentaNYL (PF) 100 MCG/2 ML VIAL IVP PRN ×4 (20:58→21:26)
[2021-09-04] MEDS ORDERED: *HR* Metoprolol 5 MG/5 ML VIAL IVP PRN (22:09)
[2021-09-04] MEDS ORDERED: Naloxone 0.4 MG/ML INJ IVP PRN (22:09)
[2021-09-04 22:41] LABS: Hematocrit 40.9 % (37.5-50.1); Hemoglobin 13.3 g/dL (12.9-16.9)
[2021-09-05] MEDS: Acetaminophen IV 1,000 MG/100 ML BAG IVPB SCH ×5 (00:26→23:08)
[2021-09-05] MEDS: Pantoprazole 40 MG VIAL IVP SCH ×2 (00:26→08:49)
[2021-09-05] MEDS: 0.9 % Sodium Chloride 1,000 ML IVC SCH ×2 (00:26→19:58)
[2021-09-05] MEDS: Desitin (Zinc Oxide) 56 GM TUBE TP SCH ×3 (03:04→15:05)
[2021-09-05 05:51] LABS: Basophils % 0.1 %; Hematocrit 41.1 % (37.5-50.1); Hemoglobin 13.1 g/dL (12.9-16.9); Immature Granulocytes % 0.4 % (0-4); Lymphocytes # 0.8 K/mcL (0.6-4.6); Lymphocytes % 4.7 %; Mean Corpuscular HGB Conc 31.9 g/dL (31.6-35.5); Mean Corpuscular Hemoglobin 27.6 pg (28.0-33.3); Mean Corpuscular Volume 86.7 fL (83.0-100.0); Monocytes # 1.3 K/mcL (0.0-1.3); Monocytes % 7.4 %; Neutrophils # 15.2 K/mcL (1.6-8.9); Platelet Count 294 K/mcL (140-400); Red Blood Count 4.74 M/mcL (4.19-5.50); Red Cell Distribution Width 15.2 % (11.5-14.5); Segmented Neutrophils % 87.4 %; White Blood Count 17.4 K/mcL (4.3-11.1)
[2021-09-05 06:05] LABS: BUN/Creatinine Ratio 15 (6-26); Blood Urea Nitrogen 20 mg/dL (8-23); Calcium 8.8 mg/dL (8.6-10.3); Carbon Dioxide 17 mEq/L (23-29); Chloride 101 mEq/L (98-107); Glucose 185 mg/dL (70-105); Magnesium 1.7 mg/dL (1.6-2.6); Osmolality,Calculated 279 (280-300); Phosphorous 4.1 mg/dL (2.7-4.5); Sodium 131 mEq/L (136-145); eGFR For African Americans > 60 (> 60); eGFR For Non-African Americans 51 (> 60)
[2021-09-05] MEDS: Finasteride 5 MG TABLET PO SCH (08:49)
[2021-09-05] MEDS ORDERED: *HR* FentaNYL (PF) 100 MCG/2 ML VIAL IVP PRN (12:19)
[2021-09-06] MEDS: Desitin (Zinc Oxide) 56 GM TUBE TP SCH ×4 (01:07→21:30)
[2021-09-06] MEDS: Acetaminophen IV 1,000 MG/100 ML BAG IVPB SCH ×4 (05:04→23:27)
[2021-09-06 06:12] LABS: Basophils % 0.3 %; Eosinophils # 0.2 K/mcL (0.0-0.6); Eosinophils % 2.1 %; Hematocrit 31.2 % (37.5-50.1); Immature Granulocytes % 0.4 % (0-4); Lymphocytes # 0.7 K/mcL (0.6-4.6); Lymphocytes % 7.3 %; Mean Corpuscular HGB Conc 33.3 g/dL (31.6-35.5); Mean Corpuscular Volume 86.9 fL (83.0-100.0); Mean Platelet Volume 9.8 fL (9.4-12.4); Monocytes # 0.8 K/mcL (0.0-1.3); Monocytes % 8.4 %; Neutrophils # 7.9 K/mcL (1.6-8.9); Platelet Count 172 K/mcL (140-400); Red Blood Count 3.59 M/mcL (4.19-5.50); Red Cell Distribution Width 15.5 % (11.5-14.5); Segmented Neutrophils % 81.5 %; White Blood Count 9.7 K/mcL (4.3-11.1)
[2021-09-06 06:13] LABS: Hemoglobin 10.4 g/dL (12.9-16.9)
[2021-09-06 06:32] LABS: BUN/Creatinine Ratio 15 (6-26); Blood Urea Nitrogen 17 mg/dL (8-23); Calcium 8.1 mg/dL (8.6-10.3); Carbon Dioxide 23 mEq/L (23-29); Chloride 104 mEq/L (98-107); Glucose 124 mg/dL (70-105); Magnesium 1.8 mg/dL (1.6-2.6); Osmolality,Calculated 281 (280-300); Phosphorous 2.2 mg/dL (2.7-4.5); Sodium 134 mEq/L (136-145); eGFR For African Americans > 60 (> 60); eGFR For Non-African Americans > 60 (> 60)
[2021-09-06] MEDS: Pantoprazole 40 MG VIAL IVP SCH (08:09)
[2021-09-06] MEDS: Finasteride 5 MG TABLET PO SCH (08:09)
[2021-09-06] MEDS: Metoclopramide 10 MG/2 ML VIAL IVP SCH ×3 (11:12→23:27)
[2021-09-06] MEDS ORDERED: Simethicone 80 MG TAB.CHEW PO PRN (13:03)
[2021-09-06] MEDS ORDERED: D5% in 0.45% NACL w KCl 20 MEQ/1,000 ML MLS IVC SCH (17:30)
[2021-09-07] MEDS: Acetaminophen IV 1,000 MG/100 ML BAG IVPB SCH ×2 (05:11→11:10)
[2021-09-07] MEDS: Metoclopramide 10 MG/2 ML VIAL IVP SCH ×4 (05:12→23:08)
[2021-09-07 05:17] LABS: Basophils % 0.5 %; Eosinophils # 0.3 K/mcL (0.0-0.6); Hematocrit 29.3 % (37.5-50.1); Hemoglobin 9.4 g/dL (12.9-16.9); Immature Granulocytes % 1.2 % (0-4); Lymphocytes # 0.7 K/mcL (0.6-4.6); Lymphocytes % 8.2 %; Mean Corpuscular HGB Conc 32.1 g/dL (31.6-35.5); Mean Corpuscular Volume 90.4 fL (83.0-100.0); Mean Platelet Volume 10.1 fL (9.4-12.4); Monocytes # 0.6 K/mcL (0.0-1.3); Neutrophils # 6.6 K/mcL (1.6-8.9); Platelet Count 161 K/mcL (140-400); Red Blood Count 3.24 M/mcL (4.19-5.50); Red Cell Distribution Width 15.7 % (11.5-14.5); Segmented Neutrophils % 80.1 %; White Blood Count 8.3 K/mcL (4.3-11.1)
[2021-09-07 05:33] LABS: BUN/Creatinine Ratio 12 (6-26); Blood Urea Nitrogen 12 mg/dL (8-23); Carbon Dioxide 24 mEq/L (23-29); Chloride 104 mEq/L (98-107); Glucose 123 mg/dL (70-105); Magnesium 1.8 mg/dL (1.6-2.6); Osmolality,Calculated 279 (280-300); Potassium 3.6 mEq/L (3.5-5.1); Sodium 134 mEq/L (136-145); eGFR For African Americans > 60 (> 60); eGFR For Non-African Americans > 60 (> 60)
[2021-09-07] MEDS: Pantoprazole 40 MG VIAL IVP SCH (08:18)
[2021-09-07] MEDS: Finasteride 5 MG TABLET PO SCH (08:19)
[2021-09-07] MEDS: Desitin (Zinc Oxide) 56 GM TUBE TP PRN ×2 (08:21→14:25)
[2021-09-07] MEDS: Desitin (Zinc Oxide) 56 GM TUBE TP SCH ×3 (08:22→20:02)
[2021-09-07] MEDS ORDERED: *HR* OxyCODONE/APAP 5/325 TABLET PO PRN (13:05)
[2021-09-07] MEDS: *HR* OxyCODONE/APAP 7.5/325 TABLET PO PRN ×2 (17:24→21:52)
[2021-09-08 05:13] LABS: Basophils % 0.6 %; Eosinophils # 0.3 K/mcL (0.0-0.6); Eosinophils % 4.2 %; Hematocrit 28.7 % (37.5-50.1); Hemoglobin 9.1 g/dL (12.9-16.9); Immature Granulocytes % 2.2 % (0-4); Lymphocytes # 0.7 K/mcL (0.6-4.6); Mean Corpuscular HGB Conc 31.7 g/dL (31.6-35.5); Mean Corpuscular Hemoglobin 28.4 pg (28.0-33.3); Mean Corpuscular Volume 89.7 fL (83.0-100.0); Monocytes # 0.5 K/mcL (0.0-1.3); Monocytes % 6.5 %; Neutrophils # 5.6 K/mcL (1.6-8.9); Platelet Count 172 K/mcL (140-400); Red Cell Distribution Width 15.7 % (11.5-14.5); Segmented Neutrophils % 77.5 %; White Blood Count 7.2 K/mcL (4.3-11.1)
[2021-09-08] MEDS: Metoclopramide 10 MG/2 ML VIAL IVP SCH (05:44)
[2021-09-08] MEDS: polyethylene glycoL 3350 17 GM POWD.PACK PO SCH (08:44)
[2021-09-08] MEDS: Finasteride 5 MG TABLET PO SCH (08:44)
[2021-09-08] MEDS: Desitin (Zinc Oxide) 56 GM TUBE TP SCH ×3 (11:46→20:46)
[2021-09-08] MEDS: *HR* OxyCODONE/APAP 7.5/325 TABLET PO PRN (20:47)
[2021-09-09] MEDS: *HR* OxyCODONE/APAP 7.5/325 TABLET PO PRN ×2 (01:29→14:17)
[2021-09-09 05:33] LABS: Basophils # 0.1 K/mcL (0.0-0.2); Basophils % 0.9 %; Eosinophils # 0.4 K/mcL (0.0-0.6); Eosinophils % 5.2 %; Hematocrit 28.8 % (37.5-50.1); Hemoglobin 9.3 g/dL (12.9-16.9); Immature Granulocytes % 3.3 % (0-4); Lymphocytes # 0.6 K/mcL (0.6-4.6); Lymphocytes % 8.5 %; Mean Corpuscular HGB Conc 32.3 g/dL (31.6-35.5); Mean Corpuscular Hemoglobin 28.7 pg (28.0-33.3); Mean Corpuscular Volume 88.9 fL (83.0-100.0); Mean Platelet Volume 9.7 fL (9.4-12.4); Monocytes # 0.5 K/mcL (0.0-1.3); Monocytes % 6.8 %; Neutrophils # 5.2 K/mcL (1.6-8.9); Platelet Count 203 K/mcL (140-400); Red Blood Count 3.24 M/mcL (4.19-5.50); Red Cell Distribution Width 15.7 % (11.5-14.5); Segmented Neutrophils % 75.3 %; White Blood Count 6.9 K/mcL (4.3-11.1)
[2021-09-09 05:47] LABS: BUN/Creatinine Ratio 18 (6-26); Blood Urea Nitrogen 16 mg/dL (8-23); Calcium 8.7 mg/dL (8.6-10.3); Carbon Dioxide 27 mEq/L (23-29); Chloride 103 mEq/L (98-107); Glucose 125 mg/dL (70-105); Osmolality,Calculated 287 (280-300); Potassium 3.9 mEq/L (3.5-5.1); Sodium 137 mEq/L (136-145); eGFR For African Americans > 60 (> 60); eGFR For Non-African Americans > 60 (> 60)
[2021-09-09] MEDS: polyethylene glycoL 3350 17 GM POWD.PACK PO SCH (07:11)
[2021-09-09] MEDS: Finasteride 5 MG TABLET PO SCH (07:12)
[2021-09-09] MEDS: *HR* Heparin 5,000 UNIT/ML VIAL SQ SCH ×2 (07:16→17:02)
[2021-09-09] MEDS: Desitin (Zinc Oxide) 56 GM TUBE TP SCH ×3 (15:18→22:09)
[2021-09-10] MEDS: *HR* Heparin 5,000 UNIT/ML VIAL SQ SCH ×2 (05:06→17:55)
[2021-09-10] MEDS: polyethylene glycoL 3350 17 GM POWD.PACK PO SCH (08:35)
[2021-09-10] MEDS: Finasteride 5 MG TABLET PO SCH (08:35)
[2021-09-10] MEDS: Desitin (Zinc Oxide) 56 GM TUBE TP SCH ×3 (08:36→20:04)
[2021-09-10] MEDS: *HR* OxyCODONE/APAP 7.5/325 TABLET PO PRN (22:49)
[2021-09-11] MEDS: *HR* Heparin 5,000 UNIT/ML VIAL SQ SCH (05:31)
[2021-09-11] MEDS: polyethylene glycoL 3350 17 GM POWD.PACK PO SCH (09:12)
[2021-09-11] MEDS: Desitin (Zinc Oxide) 56 GM TUBE TP SCH ×2 (09:13→14:26)
[2021-09-11] MEDS: Finasteride 5 MG TABLET PO SCH (09:13)
[2021-09-11 11:06] VITALS: BP 129/77; PULSE 76; TEMP 97.5; O2SAT 98
== END 2021-09-11 14:51 | disposition home health service (06) | DRG 330 ==
LOC: SAMDAY 13:47 → 3ANU 22:05
PROVIDERS: ADMIT Surgery; ATTEND Surgery